=== PATIENT | female | born 1995 | race Two or more races ===

== ENCOUNTER 2018-09-04 21:32 | Emergency (ER) | payer MEDICAID, OTHER ==
[~2018-09-04] VITALS: Ht 162.6 cm; Wt 64.4 kg
[2018-09-04 21:51] VITALS: BP 131/72
[2018-09-04] MEDS ORDERED: DEXAMETHASONE SOD PHOSPHATE 10 MG/ML VIAL ONE (22:21)
[2018-09-04] MEDS ORDERED: IBUPROFEN 400 MG TABLET ONE (22:22)
--- NOTE | 2018-09-04 22:24 | NUR ---
STREP SWAB COLLECTED, CALLED LAB FOR TELEPHONE CLEANER
[2018-09-04] MEDS: IBUPROFEN 400 MG TABLET PO ONE (22:28)
[2018-09-04] MEDS: DEXAMETHASONE SOD PHOSPHATE 4 MG/ML VIAL IM ONE (22:28)
--- NOTE | 2018-09-04 22:50 | NUR ---
VALERIE FROM LAB CALLED, STREP A POS. INFORMED HERMINIO PENA
== END 2018-09-04 23:06 | disposition home or self-care (01) ==
LOC: ER 21:42
DX: J02.0 Streptococcal pharyngitis (principal); R59.1 Generalized enlarged lymph nodes
CPT/HCPCS: 87880; 96372; 99283; J1100; 86403-TC

== ENCOUNTER 2019-02-26 22:53 | Emergency (ER) | payer MEDICAID, OTHER ==
[~2019-02-26] VITALS: Ht 162.6 cm; Wt 60.8 kg
--- NOTE | 2019-02-26 23:13 | NUR ---
PT BIB MOM C/O: ABDOMINAL DISCOMFORT, DIARRHEA, DECREASE APPETITE X5 DAYS. +NAUSEA AND VOMITING X2 DAYS, TO ER BED 3 AWAITING MED EVAL.
[2019-02-26] MEDS ORDERED: ONDANSETRON HCL/PF 4 MG/2 ML VIAL ONE (23:30)
[2019-02-26] MEDS ORDERED: MORPHINE SULFATE INJ 4 MG/ML DISP.SYRIN ONE (23:30)
[2019-02-26] MEDS ORDERED: ONDANSETRON HCL/PF 4 MG/2 ML VIAL IVP ONE (23:30)
[2019-02-26] MEDS ORDERED: MORPHINE SULFATE INJ 2 MG/ML DISP.SYRIN IV ONE (23:30)
[2019-02-26] MEDS ORDERED: IV NS 0.9% 1,000 ML BAG IV ONE (23:30)
[2019-02-26 23:33] LABS: BASOPHILS % (AUTO) 0.3 % (0.0-2.0); EOSINOPHILS % (AUTO) 1.7 % (0.0-6.0); HEMATOCRIT 47 % (33-45); HEMOGLOBIN 15.5 g/dL (11.5-14.8); LYMPHOCYTES # (AUTO) 3.3 /CMM (0.8-4.8); LYMPHOCYTES % (AUTO) 44.2 % (20.0-44.0); MEAN CORPUSCULAR HGB CONC 33 g/dl (31.0-36.0); MEAN CORPUSCULAR VOLUME 82 fL (82-100); MONOCYTES # (AUTO) 1.1 /CMM (0.1-1.30); MONOCYTES % (AUTO) 14.6 % (2.0-12.0); NEUTROPHILS # (AUTO) 2.9 /CMM (1.8-8.9); NEUTROPHILS % (AUTO) 39.2 % (43.0-81.0); PLATELET COUNT (AUTO) 292 /CMM (150-450); RED BLOOD CELL COUNT(AUTO) 5.65 MIL/uL (4.0-5.2); WHITE BLOOD COUNT (AUTO) 7.5 K/uL (4.3-11.0)
[2019-02-26 23:43] LABS: CALCIUM, SERUM 9.9 mg/dL (8.5-10.1); CREATININE 0.8 mg/dL (0.6-1.3); POTASSIUM 3.5 mmol/L (3.5-5.1)
[2019-02-26 23:48] LABS: ALBUMIN 3.9 g/dL (3.4-5.0); BILIRUBIN,DIRECT 0.2 mg/dL (0.0-0.2); BILIRUBIN,TOTAL 0.5 mg/dL (0.2-1.0); TOTAL PROTEIN, SERUM 8.8 g/dL (6.4-8.2)
--- NOTE | 2019-02-27 00:26 | NUR ---
Patient discharged to home in stable condition. Written and verbal after care instructions given. Patient verbalizes understanding of instruction.
[2019-02-27 00:27] VITALS: BP 132/79
== END 2019-02-27 00:27 | disposition home or self-care (01) ==
LOC: ER 22:57
DX: A08.4 Viral intestinal infection, unspecified (principal); R19.7 Diarrhea, unspecified
CPT/HCPCS: 36415; 80048; 80076; 85025; 96361; 96374; 96375; 99283; J2270; J2405; J7030

== ENCOUNTER → 2019-03-03 | Emergency (ER) | payer MEDICAID ==
--- NOTE | 2019-03-03 19:37 | NUR ---
PT LEFT BEFORE TRIAGE
== END | disposition left against medical advice (07) ==
LOC: ER 19:16
DX: Z53.21 Procedure and treatment not carried out due to patient leaving prior to being seen by health care provider (principal)

== ENCOUNTER 2019-06-20 21:40 | Emergency (ER) | payer MEDICAID, OTHER ==
[~2019-06-20] VITALS: Ht 162.6 cm; Wt 61.7 kg
[2019-06-20 22:18] VITALS: BP 132/81
[2019-06-20] MEDS ORDERED: DEXAMETHASONE SOD PHOSPHATE 10 MG/ML VIAL ONE (22:57)
[2019-06-20] MEDS ORDERED: DEXAMETHASONE SOD PHOSPHATE 10 MG/ML VIAL IM ONE (23:00)
--- NOTE | 2019-06-20 23:03 | NUR ---
Patient discharged to home in stable condition. Written and verbal after care instructions given. Patient verbalizes understanding of instruction.
== END 2019-06-20 23:04 | disposition home or self-care (01) ==
LOC: ER 21:41
DX: J02.0 Streptococcal pharyngitis (principal)
CPT/HCPCS: 96372; 99283; J1100